=== PATIENT | female | born 1955 | race Caucasian/White ===

== ENCOUNTER 2021-06-07 15:31 | Outpatient (CLI) | payer MEDICARE | END 2021-06-07 15:32 | disposition home or self-care (01) | LOC: CSHULT 15:31 | PROVIDERS: ATTEND Student in an Organized Health Care Education/Training Program | DX: Z86.39 Personal history of other endocrine, nutritional and metabolic disease (principal); E04.1 Nontoxic single thyroid nodule | CPT/HCPCS: 76536 ==

== ENCOUNTER 2022-08-16 11:06 | Outpatient (CLI) | payer MEDICARE | END 2022-08-16 11:07 | disposition home or self-care (01) | LOC: CSHMAMMO 11:06 | PROVIDERS: ATTEND Student in an Organized Health Care Education/Training Program | DX: Z12.31 Encounter for screening mammogram for malignant neoplasm of breast (principal); R92.1 Mammographic calcification found on diagnostic imaging of breast; M85.852 Other specified disorders of bone density and structure, left thigh; M85.851 Other specified disorders of bone density and structure, right thigh; Z78.0 Asymptomatic menopausal state | CPT/HCPCS: 77063; 77067; 77080 ==